=== PATIENT | male | born 1990 | race Two or more races ===

== ENCOUNTER 2021-07-28 04:00 | Emergency (ER) | payer OTHER ==
[~2021-07-28] VITALS: Ht 167.6 cm; Wt 73.5 kg
== END 2021-07-28 11:17 | disposition home or self-care (01) ==
LOC: ER 04:00
DX: K29.70 Gastritis, unspecified, without bleeding (principal)

== ENCOUNTER 2023-01-21 08:18 | Outpatient (CLI) | payer OTHER ==
[~2023-01-21 08:18] MED LIST: LEVOFLOXACIN750 MG PO; NAPROXEN375 MG PO
== END 2023-01-21 08:31 | disposition home or self-care (01) ==
LOC: SONOGRAMA 08:18
DX: N28.1 Cyst of kidney, acquired (principal)

== ENCOUNTER 2024-06-30 09:16 | Outpatient (CLI) | payer OTHER | END 2024-06-30 09:21 | disposition home or self-care (01) | LOC: MRI 09:16 | PROVIDERS: ATTEND Family Medicine | DX: M54.50 Low back pain, unspecified (principal) | CPT/HCPCS: 72148 ==